=== PATIENT | female | born 1970 | race Caucasian/White ===

== ENCOUNTER 2017-05-31 10:06 | Observation (INO) | END 2017-06-02 18:43 | disposition home or self-care (01) ==

== ENCOUNTER 2017-09-20 20:52 | Inpatient (IN) | END 2017-10-18 17:25 | disposition home or self-care (01) | DRG 459 ==

== ENCOUNTER 2017-10-24 18:17 | Emergency (ER) | END 2017-10-24 23:55 | disposition home or self-care (01) ==

== ENCOUNTER 2017-11-03 23:39 | Inpatient (IN) | END 2017-11-08 18:55 | disposition home or self-care (01) | DRG 863 ==